=== PATIENT | female | born 1965 | race Caucasian/White ===

== ENCOUNTER → 2016-08-21 11:26 | Outpatient (CLI) | payer BC ==
[~2016-08-21 11:26] MED LIST: CALCIUM 600 +1 EAC3 PO; EPIFOAM10 GM TOPICAL; ESTRACE1 MG PO; ESTRADERM 0.10.1 MG TD; GLUCOPHAGE500 MG PO; IBUPROFEN600 MG PO; NU-IRON 150150 MG PO; PERCODAN TABLET1 TAB PO; POLY IRON PN TA1 TAB PO; PROVERA 5 MG TAB5 MG PO; SYNTHROID25 MCG PO; ZANTAC150 MG PO
== END | disposition home or self-care (01) ==
LOC: D.US 11:26
DX: M25.552 Pain in left hip (principal)

== ENCOUNTER → 2018-10-01 08:16 | Outpatient (CLI) | payer BC | END | disposition home or self-care (01) | LOC: D.US 08:16 | DX: R10.13 Epigastric pain (principal) ==

== ENCOUNTER → 2018-10-08 07:28 | Outpatient (CLI) | payer BC | END | disposition home or self-care (01) | LOC: D.MRI 07:28 | DX: K76.9 Liver disease, unspecified (principal) ==

== ENCOUNTER → 2019-04-07 07:35 | Outpatient (CLI) | payer BC ==
[2019-04-07 08:16] LABS: ALBUMIN 3.3 g/dL (3.4-5.0); BILIRUBIN - DIRECT 0.06 mg/dL (0.00-0.30); BILIRUBIN - INDIRECT 0.13 mg/dL (0.00-1.00); BILIRUBIN - TOTAL 0.19 mg/dL (0.2-1.3); PROTEIN - SERUM 7.2 g/dL (6.4-8.2)
== END | disposition home or self-care (01) ==
LOC: D.US 07:35
PROVIDERS: ATTEND Internal Medicine Gastroenterology
DX: R93.2 Abnormal findings on diagnostic imaging of liver and biliary tract (principal)

== ENCOUNTER → 2019-10-08 07:54 | Outpatient (CLI) | payer BC ==
[2019-10-08 09:15] LABS: ALBUMIN 3.3 g/dL (3.4-5.0); BILIRUBIN - DIRECT 0.15 mg/dL (0.00-0.30); BILIRUBIN - INDIRECT 0.3 mg/dL (0.00-1.00); BILIRUBIN - TOTAL 0.45 mg/dL (0.2-1.3); PROTEIN - SERUM 6.9 g/dL (6.4-8.2)
== END | disposition home or self-care (01) ==
LOC: D.LAB 07:45 → D.US 08:00
PROVIDERS: ATTEND Internal Medicine Gastroenterology
DX: K76.0 Fatty (change of) liver, not elsewhere classified (principal)

== ENCOUNTER → 2019-11-17 07:12 | Outpatient (CLI) | payer BC ==
[2019-11-17 07:45] LABS: BASOPHILS 0.5 % (0-2); EOSINOPHILS 3.2 % (0-7); HEMATOCRIT 39.4 % (36.0-48.0); IMMATURE GRANULOCYTES 0.2 % (0-5); LYMPHOCYTES 34.7 % (15-50); MEAN PLATELET VOLUME 9.6 fL (7.4-10.4); MONOCYTES 10.3 % (2-11); NEUTROPHILS 51.1 % (40-80); PLATELET COUNT 275 10x3/uL (130-400); RBC 3.94 10x6/uL (4.00-5.40); RDW 12.8 % (11.5-14.5)
[2019-11-17 07:54] LABS: APTT 42.1 SECONDS (22.8-39.4); INR 0.99 (0.85-1.17); PROTIME 13.1 SECONDS (11.6-15.0)
[2019-11-17 08:11] LABS: % SATURATION 40 % (15-55); IRON 109 ug/dl (35-150); TOTAL IRON BIND CAPACITY 270 ug/dl (260-445); UNSAT IRON BIND CAPACITY 161 ug/dl (150-375)
[2019-11-17 08:30] LABS: CHOL - HDL RATIO 3.1 ratio (2.3-4.1); LDL-HDL RATIO 1.9 ratio (1.5-3.5)
[2019-11-18 05:08] LABS: HAPTOGLOBIN 58 mg/dL (33-346)
[2019-11-18 09:08] LABS: ANA REFLEX - DIRECT Negative (Negative)
[2019-11-19 15:09] LABS: MITOCHONDRIAL ANTIBODY <20.0 Units (0.0-20.0); SMOOTH MUSCLE ABS (ACTIN) 8 Units (0-19)
== END | disposition home or self-care (01) ==
LOC: D.LAB 07:12
PROVIDERS: ATTEND Internal Medicine Gastroenterology
DX: K76.0 Fatty (change of) liver, not elsewhere classified (principal); R74.8 Abnormal levels of other serum enzymes

== ENCOUNTER → 2020-04-07 09:32 | Outpatient (CLI) | payer BC ==
[2020-04-07 10:31] LABS: ALBUMIN 3.5 g/dL (3.4-5.0); BILIRUBIN - DIRECT 0.12 mg/dL (0.00-0.30); BILIRUBIN - INDIRECT 0.33 mg/dL (0.00-1.00); BILIRUBIN - TOTAL 0.45 mg/dL (0.2-1.3); PROTEIN - SERUM 6.5 g/dL (6.4-8.2)
== END | disposition home or self-care (01) ==
LOC: D.LAB 09:32 → D.US 10:00
PROVIDERS: ATTEND Internal Medicine Gastroenterology
DX: K76.0 Fatty (change of) liver, not elsewhere classified (principal)

== ENCOUNTER → 2020-11-13 08:17 | Outpatient (CLI) | payer BC ==
[2020-11-13 09:25] LABS: ALBUMIN 3.6 g/dL (3.4-5.0); BILIRUBIN - DIRECT 0.1 mg/dL (0.00-0.30); BILIRUBIN - INDIRECT 0.38 mg/dL (0.00-1.00); BILIRUBIN - TOTAL 0.48 mg/dL (0.2-1.3); PROTEIN - SERUM 6.6 g/dL (6.4-8.2)
== END | disposition home or self-care (01) ==
LOC: D.US 08:00
PROVIDERS: ATTEND Internal Medicine Gastroenterology
DX: K76.0 Fatty (change of) liver, not elsewhere classified (principal)